=== PATIENT | female | born 1990 | race African-American/Black ===

== ENCOUNTER 2019-11-22 17:32 | Emergency (ER) | payer OTHER, SELFPAY ==
[2019-11-22 17:44] VITALS: BP 130/80; PULSE 70; RESP 16; TEMP 37.2; O2SAT 100
--- NOTE | 2019-11-22 17:52 | ED.GENADULT ---
HPI - General Adult General Chief complaint: Neck Pain/Injury Stated complaint: Abdominal pain and neck pain Time Seen by Provider: 11/22/19 17:52 Source: patient Mode of arrival: ambulatory Limitations: no limitations History of Present Illness HPI narrative: 29-year-old female patient presents to the [facility] with complaints of left side pain left-sided neck pain for the past month. Patient states she has seen her doctor for this and she was prescribed some meloxicam but she states she has not taken it yet. Patient states she is concerned about the side effects with the kidneys. Patient states that she has had a DVT in her leg before in the past and just had a follow-up in regards to her DVT about 2 weeks ago but is currently not on any blood thinners at this time. Patient is concerned also because she was recently diagnosed with lupus and has a follow-up appointment with this next week. Patient denies any chest pain, shortness of breath. Patient states she has had a lot of anxiety lately. Patient states she feels like something might be in her lung and she wanted to come and get checked out today. Related Data Allergies Allergy/AdvReac Type Severity Reaction Status Date / Time No Known Allergies Allergy Unknown Verified 11/22/19 17:37 Review of Systems Review of Systems: Narrative: CONSTITUTIONAL: Denies fever, chills, or sweats. EYES: Denies visual changes, redness, or discharge. ENT: Denies rhinorrhea, congestion, sore throat, or otalgia. CARDIOVASCULAR: Denies chest pain, palpitations, or edema. RESPIRATORY: Denies cough or dyspnea. Positive left rib pain GASTROINTESTINAL: Denies abdominal pain, nausea, vomiting, or diarrhea. GENITOURINARY: Denies dysuria or hematuria. SKIN: Denies rash or itching. MUSCULOSKELETAL: Denies back pain, joint pain, or myalgia. Positive left-sided neck pain NEUROLOGIC: Denies headache, numbness, or weakness. PSYCHIATRIC: Denies anxiety or depression. [facility] Social History Social History Gender identity (if verbalized by the patient): Female Comments At the time of my signature I agree with nursing past medical history, surgical, social, and family history. There is no relevant family history pertinent to the presenting complaint. Exam Narrative: Exam Narrative: GENERAL: Well-appearing, well-nourished, and in no acute distress. HEAD: Normocephalic, atraumatic. EYES: PERRLA and EOMI. ENT: Nares clear, no rhinorrhea or epistaxis. Mucous membranes moist. NECK: Supple, no lymphadenopathy. No surface trauma, no soft tissue or muscle tenderness or spasm noted. Trachea midline. No subq emphysema or crepitus. No janeth tenderness, step-offs or deformity to firm Palpation at posterior midline. FROM without limitation or pain, normal flexion, extension,Lateral bending, rotation, and axial load. CHEST: Clear to auscultation. No respiratory distress. Patient able talk in clear complete sentences. No tripoding noted. Patient does have point tenderness to the muscle area of the left side of the ribs. There is no obvious wound there. Slight muscle spasm noted on palpation. HEART: Regular rate and rhythm. No murmur heard. Normal peripheral pulses. ABDOMEN: Soft, nontender, nondistended, normal active bowel sounds. EXTREMITIES: Normal range of motion. No edema. SKIN: Warm, dry, no rash. NEURO: No focal deficits. Alert and oriented x3. Course Vital Signs Vital signs: Vital Signs Temperature 37.2 C 11/22/19 17:44 Pulse Rate 70 11/22/19 17:44 Respiratory Rate 16 11/22/19 17:44 Blood Pressure 130/80 11/22/19 17:44 Pulse Oximetry 100 11/22/19 17:44 Temperature 37.2 C 11/22/19 17:44 Pulse Rate 70 11/22/19 17:44 Respiratory Rate 16 11/22/19 17:44 Blood Pressure 130/80 11/22/19 17:44 Pulse Oximetry 100 11/22/19 17:44 Vital signs reviewed. The patient has been informed that they may have pre-hypertension or Hyper
== END 2019-11-22 18:09 | disposition home or self-care (01) ==
PROVIDERS: Emergency Provider Nurse Practitioner Family
DX: R07.89 Other chest pain (principal); M54.2 Cervicalgia; Z86.718 Personal history of other venous thrombosis and embolism
CPT/HCPCS: 99211; G0463

== ENCOUNTER 2019-12-10 19:17 | Emergency (ER) | payer OTHER, SELFPAY ==
[2019-12-10 19:27] VITALS: BP 152/97; PULSE 62; RESP 16; TEMP 36.3; O2SAT 100
--- NOTE | 2019-12-10 19:56 | ED.HA ---
HPI - Headache General Chief Complaint: Headache Stated Complaint: headache Time Seen by Provider: 12/10/19 19:34 History of Present Illness HPI Narrative: 29 y.o female presents to the ED with c/o sharp head pains since this A.M. with chills. Pt reports she went to work today and took a Tylenol 500mg and her current prednisone prescription with some relief. She reports light sensitivity, denies n/v. Denies cough, SOB, CP. Has had ongoing left rib pain just below breast that she is taking prednisone for-currently pain free. Pt reports possible recent abnormal SHELBY lab and told she may have Lupus. She also has ongoing concern about a reoccurence of a blood clot. She has had a lot of stress regarding her health and is concerned something is wrong. A/O x3. NAD. Related Data Home Medications Medication Instructions Recorded Confirmed ascorbic aous-wfkkfbtm-zwa 1,000 mg PO DAILY 12/10/19 [Emergen-C Immune Plus] lactobacillus combination no.8 3,000 mmu cells PO DAILY 12/10/19 [Adult Probiotic] multivitamin 1 tablet PO DAILY 12/10/19 prednisone 0 mg PO PER PKG DIR 12/10/19 Allergies Allergy/AdvReac Type Severity Reaction Status Date / Time No Known Allergies Allergy Unknown Verified 12/10/19 19:45 Review of Systems Review of Systems: Narrative: CONSTITUTIONAL: Denies fever or sweats. Reports chills with sharp head pains today. EYES: Denies visual changes, redness, or discharge. Denies tearing. Reports some light sensitivity. HEAD: Reports sharp pains in the back of the head that are intermittent. ENT: Denies rhinorrhea, congestion, sore throat, or otalgia. CARDIOVASCULAR: Denies chest pain, palpitations, or edema. RESPIRATORY: Denies cough or dyspnea. GASTROINTESTINAL: Denies abdominal pain, nausea, vomiting, or diarrhea. GENITOURINARY: Denies dysuria or hematuria. SKIN: Denies rash or itching. MUSCULOSKELETAL: Reports a tight feeling to the anterior aspect of the knee. Denies injury. Denies calf or posterior knee pain. NEUROLOGIC: Denies numbness, or weakness. Reports sharp pains that occur in the back of the head. PSYCHIATRIC: Denies anxiety or depression. [facility] Past Medical History Medical History (Updated 12/10/19 @ 21:12 by SKYE Quinteros) History of DVT (deep vein thrombosis) Family History Family History (Updated 12/10/19 @ 20:30 by SKYE Quinteros) Grandparent Brain tumor Social History Social History (Updated 12/10/19 @ 20:03 by SKYE Quinteros) Smoking status: Never smoker Alcohol intake: current Drinks per week: 2 Substance use: never Gender identity (if verbalized by the patient): Female Exam Narrative: Exam Narrative: GENERAL: Appears stressed, in no acute distress. HEAD: Normocephalic, atraumatic. EYES: PERRL 3mm bilat and EOMI. sclera anicteric. ENT: Nares clear, no rhinorrhea or epistaxis. No sinus tenderness. Mucous membranes moist. NECK: Supple. No cervical spine tenderness. No cervical lymphadenopathy. CHEST: Clear to auscultation. No respiratory distress. No rash, ecchymosis, palpable mass, crepitus to the left rib area just under the breast. HEART: Regular rate and rhythm. No murmur heard. Normal peripheral pulses. ABDOMEN: Soft, nontender, nondistended, normal active bowel sounds. EXTREMITIES: Normal range of motion. No edema. SKIN: Warm, dry, no rash. NEURO: No focal deficits. Alert and oriented x3. Cranial nerves II through XII intact. PSYCH: Maintains eye contact. Course Course Emergency Course: Pt reports good pain relief from Toradol. Vital Signs Vital signs: Vital Signs Temperature 36.3 C L 12/10/19 19: Pulse Rate 62 12/10/19 19:27 Respiratory Rate 16 12/10/19 19: Blood Pressure 152/97 H 12/10/19 19:27 Pulse Oximetry 100 12/10/19 19:27 Temperature 36.1 C L 12/10/19 21:20 Pulse Rate 65 12/10/19 21:20 Respiratory Rate 18 12/10/19 21:20 Blood Pressure 152/83 H 12/10/19 21:20 Pulse Oximet
[2019-12-10] MEDS: KETOROLAC (*BKC) 60 MG/2 ML VIAL IM (20:28)
[2019-12-10 21:20] VITALS: BP 152/83; PULSE 65; RESP 18; TEMP 36.1; O2SAT 100
== END 2019-12-10 21:22 | disposition home or self-care (01) ==
PROVIDERS: Emergency Provider Nurse Practitioner
DX: F41.9 Anxiety disorder, unspecified (principal); Z86.718 Personal history of other venous thrombosis and embolism
CPT/HCPCS: 96372; 99283; J1885

== ENCOUNTER 2020-08-21 18:06 | Emergency (ER) | payer OTHER, SELFPAY ==
[2020-08-21 18:16] VITALS: BP 144/95; PULSE 69; RESP 18; TEMP 37; O2SAT 100
--- NOTE | 2020-08-21 18:27 | ED.FEMALEGU ---
HPI - Female Genitourinary General Chief complaint: Urogenital-Female Stated complaint: abd pain Time Seen by Provider: 08/21/20 18:27 Source: patient and RN notes reviewed Mode of arrival: ambulatory Limitations: no limitations History of Present Illness HPI Narrative: 30 year old female ho presents to express care with complaints of lower abdominal suprapubic area discomfort for the past 3 days and also discomfort when she urinates. Patient denies any burning noted with urination just discomfort, states no urinary frequency or urgency noted but symptoms are similar to when she has had UTI's in the past. Patient denies any fevers,chills, or sweats, denies any nausea or vomiting or diarrhea, denies any CVA tenderness. Patient has not taken any OTC AZO for symptoms. MD elicited complaint: dysuria and pelvic pain Pertinent past history: other (previous UTI, trichomonas) Onset (ago): day(s) (3) Location of symptoms: suprapubic and urethra Severity: moderate Female Urogenital Radiation: Suprapubic Severity scale (1-10): 4 Quality of pain: aching Consistency: constant Vaginal discharge: none Vaginal bleeding: none Urinary symptoms: Dysuria Exacerbating factors: urination Relieving factors: none Associated symptoms: denies other symptoms Treatment prior to arrival: none Sexual activity: Yes Patient : No Date of Last Menstrual Period: 08/07/20 Related Data Allergies Allergy/AdvReac Type Severity Reaction Status Date / Time No Known Allergies Allergy Unknown Verified 08/21/20 18:30 Review of Systems Review of Systems: Narrative: CONSTITUTIONAL: Denies fever, chills, or sweats. EYES: Denies visual changes, redness, or discharge. ENT: Denies rhinorrhea, congestion, sore throat, or otalgia. CARDIOVASCULAR: Denies chest pain, palpitations, or edema. RESPIRATORY: Denies cough or dyspnea. GASTROINTESTINAL: states lower abdominal pressure,no nausea, vomiting, or diarrhea. GENITOURINARY: positive dysuria no hematuria. SKIN: Denies rash or itching. MUSCULOSKELETAL: Denies back pain, joint pain, or myalgia. NEUROLOGIC: Denies headache, numbness, or weakness. PSYCHIATRIC: Denies anxiety or depression. All systems reviewed & are unremarkable except as noted in HPI and below PMFSH Past Medical History Medical History (Updated 08/22/20 @ 10:16 by Rupa Hamilton NP) History of DVT (deep vein thrombosis) Lupus (systemic lupus erythematosus) Surgical History Surgical History (Updated 08/22/20 @ 10:16 by Rupa Hamilton NP) Hx of umbilical hernia repair with mesh Previous section Family History Family History Grandparent Brain tumor Social History Social History (Updated 12/10/19 @ 20:03 by SKYE Quinteros) Smoking status: Never smoker Alcohol intake: current Drinks per week: 2 Substance use: never Gender identity (if verbalized by the patient): Female Comments At time of signature, agree with nursing past medical, surgical, social and family history. There is no relevant family history pertinent to the presenting complaint Exam Narrative: Exam Narrative: GENERAL: Well-appearing, well-nourished, and in no acute distress. HEAD: Normocephalic, atraumatic. EYES: PERRLA and EOMI. ENT: Nares clear, no rhinorrhea or epistaxis. Mucous membranes moist. NECK: Supple.no lymphadenopathy CHEST: Clear to auscultation. No respiratory distress.SAO2 100% HEART: Regular rate and rhythm. No murmur heard. Normal peripheral pulses. ABDOMEN: Soft, nontender on palpation, nondistended, normal active bowel sounds.No CVA tenderness or McBurney point tenderness on examination. EXTREMITIES: Normal range of motion. No edema. SKIN: Warm, dry, no rash. NEURO: No focal deficits. Alert and oriented x3. Course Vital Signs Vital signs: Vital Signs Temperature 37.0 C 08/21/20 18:16 Pulse Rate 69 08/21/20 18:16 Respiratory Rate 18 08/21/20 18:16
== END 2020-08-21 18:47 | disposition home or self-care (01) ==
PROVIDERS: Emergency Provider Registered Nurse
DX: N39.0 Urinary tract infection, site not specified (principal); M32.9 Systemic lupus erythematosus, unspecified; Z86.718 Personal history of other venous thrombosis and embolism
CPT/HCPCS: 81003; 87086; 99213; G0463

== ENCOUNTER 2021-03-22 19:46 | Emergency (ER) | payer OTHER, SELFPAY ==
[2021-03-22 19:56] VITALS: BP 138/86; PULSE 70; RESP 16; TEMP 35.8; O2SAT 100
--- NOTE | 2021-03-22 20:11 | ED.ABDPAIN ---
HPI - Abdominal Pain General Chief Complaint: Abdominal Pain Stated Complaint: Abdominal Pain Time Seen by Provider: 03/22/21 20:03 Source: patient and RN notes reviewed Mode of arrival: ambulatory Limitations: no limitations History of Present Illness HPI narrative: Patient presents today complaining of sharp lower abdominal pain from the umbilicus that radiates down to the suprapubic area. Pain started this morning and has been constant throughout the day. Denies nausea, vomiting, fever, dysuria, hematuria, frequency or urgency. Reports headache as well as one loose stool this morning. Currently rates her pain 7/10. She has taken Excedrin for her headache today. MD elicited complaint: abdominal pain Related Data Home Medications Medication Instructions Recorded Confirmed zbyacwxioo-viayomogzcskw-laoy cap 03/22/21 cyclobenzaprine mg 03/22/21 prednisone 03/22/21 Allergies Allergy/AdvReac Type Severity Reaction Status Date / Time No Known Allergies Allergy Unknown Verified 03/22/21 19:59 Review of Systems Review of Systems: Narrative: CONSTITUTIONAL: Denies body aches, fever, chills, or sweats. EYES: Denies visual changes, redness, or discharge. ENT: Denies rhinorrhea, congestion, sore throat, or otalgia. CARDIOVASCULAR: Denies chest pain, palpitations, or edema. RESPIRATORY: Denies cough or dyspnea. GASTROINTESTINAL: Denies nausea, vomiting, or diarrhea. + Abdominal pain GENITOURINARY: Denies dysuria or hematuria. SKIN: Denies rash, itching, or wounds. MUSCULOSKELETAL: Denies back pain, joint pain, or myalgia. NEUROLOGIC: Denies numbness, tingling, or weakness. + Headache PSYCH: Denies depression or anxiety. [facility] Past Medical History Medical History History of DVT (deep vein thrombosis) Lupus (systemic lupus erythematosus) Surgical History Surgical History Hx of umbilical hernia repair with mesh Previous section Family History Family History Grandparent Brain tumor Social History Social History Smoking status: Never smoker Alcohol intake: current Drinks per week: 2 Substance use: never Gender identity (if verbalized by the patient): Female Comments At time of signature, I have reviewed and agree with nursing past medical, surgical, social and family history unless otherwise noted. Please see nursing chart for further information. There is no relevant family history pertinent to the presenting complaint Exam Narrative: Exam Narrative: GENERAL: Well-appearing, well-nourished, and in no acute distress. HEAD: Normocephalic, atraumatic. EYES: EOMI. No redness or drainage. Conjunctivae normal. ENT: Mucous membranes pink and moist. NECK: Normal AROM. CHEST: No respiratory distress. Clear to auscultation. HEART: Regular rate and rhythm. No murmur appreciated. Normal peripheral pulses. ABDOMEN: Soft, nondistended, normal active bowel sounds. Lower abdominal tenderness, most marked at the periumbilical area. No rebound or guarding. MUSCULOSKELETAL: No bony tenderness. EXTREMITIES: Normal range of motion. No edema. SKIN: Warm, dry, no rash. Capillary refill normal. Normal skin turgor. NEURO: No focal deficits. Alert and oriented x3. Gait steady. PSYCH: Normal affect. No signs of depression or anxiety. Course Vital Signs Vital signs: Vital Signs Temperature 96.4 F L 03/22/21 19:56 Pulse Rate 70 03/22/21 19:56 Respiratory Rate 16 03/22/21 19:56 Blood Pressure 138/86 03/22/21 19:56 Pulse Oximetry 100 03/22/21 19:56 Temperature 96.4 F L 03/22/21 19:56 Pulse Rate 70 03/22/21 19:56 Respiratory Rate 16 03/22/21 19:56 Blood Pressure 138/86 03/22/21 19:56 Pulse Oximetry 100 03/22/21 19:56 Revie
== END 2021-03-22 20:16 | disposition short-term general hospital (02) ==
PROVIDERS: Emergency Provider Nurse Practitioner
DX: R10.33 Periumbilical pain (principal); Z86.718 Personal history of other venous thrombosis and embolism; M32.9 Systemic lupus erythematosus, unspecified
CPT/HCPCS: 81003; 99212; G0463

== ENCOUNTER 2021-03-22 20:33 | Emergency (ER) | payer OTHER, SELFPAY ==
--- NOTE | ~2021-03-22 | CT_ITS ---
EXAMINATION: CT abdomen pelvis w con EXAM DATE: 03/22/2021 23:26 INDICATION: Periumbilical abdominal pain. TECHNIQUE: Spiral CT of the abdomen and pelvis was performed following intravenous injection of 100 m L Omnipaque 350. Axial, coronal and sagittal images of the abdomen and pelvis were reviewed. The do se-length product (DLP) for this examination was 1251.50 mGy-cm. The exposure was tailored according to patient size (auto mA exposure control), and iterative reconstruction (ASIR) was used as addition al dose reduction technique. There is no prior study for comparison. FINDINGS: The liver, spleen, adrenal glands and pancreas are unremarkable. The gallbladder is contra cted but otherwise unremarkable. Portal and splenic veins are patent. Kidneys enhance symmetrically . There is no hydronephrosis. 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 The blad lucia is unremarkable. There is no retroperitoneal or pelvic lymphadenopathy. There is small umbilical fat-containing hernia.. There are no findings to suggest appendicitis. The stomach and small bowel are unremarkable. There is expected amount of colonic stool. No free intraperitoneal gas. The heart is normal in size. T here are no pericardial or pleural effusions. The lung bases are unremarkable. The bones are unrema rkable. IMPRESSION: 1. No acute intra-abdominal findings. 2. 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 3. Small umbilical fat-containing hernia. Reviewed, dictated and finalized at location A.
[2021-03-22 21:16] VITALS: BP 133/86; PULSE 62; RESP 18; TEMP 36.6; O2SAT 100
[2021-03-22 21:41] LABS: Basophils Percent Auto 0.5 % (0.2-1.2); Hematocrit 37.8 % (37.0-47.0); Hemoglobin 12.4 g/dL (12.0-15.0); Lymphocytes Absolute Auto 2.14 K/mm3 (0.9-3.2); Lymphocytes Percent Auto 54.6 % (18.3-44.2); Mean Corpuscular HGB Conc 32.8 g/dl (32-36); Mean Corpuscular Hemoglobin 26.4 pg (26-34); Mean Corpuscular Volume 80.4 fl (80-100); Mean Platelet Volume 9.7 fl (7.4-10.4); Monocytes Absolute Auto 0.3 K/mm3 (0.1-0.6); Monocytes Percent Auto 8.7 % (2.6-8.5); Neutrophils Absolute Auto 1.4 K/mm3 (1.3-6.7); Neutrophils Percent Auto 36.2 % (45.5-73.1); Platelet Count Result 255 k/mm3 (150-375); Red Cell Distribution Width 12.7 % (11.5-14.5); White Blood Count 3.9 K/mm3 (4.5-10.0)
[2021-03-22 21:48] LABS: Alanine Aminotransferase 14 U/L (4-35); Albumin Level 4.3 g/dL (3.5-5.1); Alkaline Phosphatase 58 U/L (38-126); Anion Gap 8 mmol/L (8-16); Aspartate Amino Transferase 22 U/L (14-36); Bilirubin,Total 0.2 mg/dL (0.2-1.3); Blood Urea Nitrogen 10 mg/dL (7-17); Carbon Dioxide 28 mmol/L (22-30); Chloride 104 mmol/L (98-107); Estimated CRCL calculation 80 ml/min; Estimated Glomerular Filt Rate > 60; Glucose 91 mg/dL (65-105); Lipase 55 U/L (23-300); Potassium 3.6 mmol/L (3.4-5.0); Sodium 140 mmol/L (137-145)
--- NOTE | 2021-03-22 21:49 | PC.NURSE ---
Pt presents to ED with complaints of abdominal pain that onset this morning. Pain rated 6/10 and sharp and umbilicus and lower abdomen. Pt denies nvd, fever, chills and chest pain. Pt states she took excedrin at approx 11am today with no relief. Pt denies urinary symptoms. Pt admits to hx of anxiety. States discomfort increased with exhaling. Pt noted to be alert and oriented x4 and in no obvious distress with stable vitals. Call button and personal items within reach. Pt advised to press call button for assistance.
--- NOTE | 2021-03-22 21:53 | PC.NURSE ---
Pt states she provided urine specimen at and states she was sent here for evaluation because they couldn't do anything for her.
[2021-03-22 21:54] VITALS: BP 132/84; PULSE 69; RESP 17; TEMP 36.4; O2SAT 100
--- NOTE | 2021-03-22 21:55 | PC.NURSE ---
Pt aware of need for urine specimen and states she urinated at [facility] and does not have the urge to urinate at this time. Specimen cup provided.
--- NOTE | 2021-03-22 22:27 | PC.NURSE ---
pt ambulated in [place] to restroom to provide urine specimen.
--- NOTE | 2021-03-22 22:53 | ED.ABDPAIN ---
HPI - Abdominal Pain General Chief Complaint: Abdominal Pain Stated Complaint: abdominal pain, migraine Time Seen by Provider: 03/22/21 22:00 Source: patient Mode of arrival: ambulatory Limitations: no limitations History of Present Illness HPI narrative: Patient is a 31-year-old female complaining periumbilical and lower abdominal pain, 6 out of 10, dull, nonradiating started this morning. Patient denies any pain, shortness of breath, nausea, vomiting, diarrhea, fever, chills or urinary symptoms. Related Data Home Medications Medication Instructions Recorded Confirmed pattklyclk-qkcjcctvfilah-ycoq cap 03/22/21 cyclobenzaprine mg 03/22/21 prednisone 03/22/21 Allergies Allergy/AdvReac Type Severity Reaction Status Date / Time No Known Allergies Allergy Unknown Verified 03/22/21 21:20 Review of Systems Review of Systems: All systems reviewed & are unremarkable except as noted in HPI and below Constitutional: Constitutional: Denies body ache(s), Denies chills, Denies excessive sweating, Denies fatigue, Denies fever(s), Denies headache(s), Denies lethargy, Denies malaise, Denies weakness and Denies weight loss Eyes: Eyes: Denies blurry vision, Denies change in vision and Denies loss of vision ENT: Denies dizziness, Denies ear discharge, Denies headache(s), Denies lip swelling, Denies epistaxis, Denies nasal congestion, Denies neck pain, Denies throat swelling and Denies tongue swelling Cardiovascular: Cardiovascular: Denies chest pain, Denies chest pain at rest, Denies chest pain with activity, Denies diaphoresis, Denies rapid heart rate, Denies edema, Denies irregular heart rhythm, Denies lightheadedness, Denies palpitations, Denies dyspnea and Denies dyspnea on exertion Respiratory: Respiratory: Denies chest congestion, Denies cough, Denies hemoptysis, Denies dyspnea and Denies dyspnea on exertion Gastrointestinal: Gastrointestinal: Denies melena, Denies hematochezia, Denies diarrhea, Denies nausea, Denies vomiting and Denies hematemesis Musculoskeletal: Musculoskeletal: Denies abnormal gait, Denies deformity, Denies joint swelling, Denies limited range of motion, Denies neck pain and Denies numbness Neurologic: Denies Abnormal speech present, Denies abnormal gait, Denies confusion, Denies dizziness, Denies headache(s), Denies focal weakness, Denies loss of vision, Denies numbness, Denies Other visual disturbances, Denies Sensory deficit (Neuro) and Denies weakness Psychiatric: Psychiatric: Denies confusion, Denies depression, Denies auditory hallucinations, Denies homicidal ideation and Denies suicidal ideation Endocrine: Endocrine: Denies cold intolerance, Denies excessive sweating, Denies fatigue, Denies heat intolerance and Denies palpitations Hematologic/Lymphatic: Hematologic/Lymphatic: Denies easy bleeding and Denies easy bruising Allergic/Immunologic: Allergic/Immunologic: Denies lip swelling, Denies throat swelling and Denies tongue swelling PMFSH Past Medical History Medical History History of DVT (deep vein thrombosis) Lupus (systemic lupus erythematosus) Surgical History Surgical History Hx of umbilical hernia repair with mesh Previous section Family History Family History Grandparent Brain tumor Social History Social History Smoking status: Never smoker Alcohol intake: current Drinks per week: 2 Substance use: never Gender identity (if verbalized by the patient): Female Exam Const: General: cooperative, healthy appearing, comfortable, no acute distress, well developed, alert and awake; No confusion Orientation/consciousness: oriented to person, oriented to place, oriented to time, patient oriented x3 and No confusion Limitations: no limitations H
[2021-03-22 23:21] LABS: Add Urine Microscopic? YES; Appearance Urine Clear (Clear); Bilirubin Urine Negative (Negative); Blood Urine Negative (Negative); Color Urine Yellow (Yellow); Glucose Urine UA Negative (Negative); Ketones Urine Negative (Negative); Leukocyte Esterase Ur Negative LEU/UL (Negative); Mucus Urine Rare /lpf; Nitrate Urine Negative (Negative); Protein Urine 1+ mg/dL (Negative); RBC Urine 0-2 /hpf (0-2); Specific Grav Ur 1.029 (1.001-1.035); Squamous Epithelial Cell Urine Many /hpf (Few); WBC Urine 0-3 /hpf
[2021-03-23] MEDS: KETOROLAC 30 MG/ML VIAL (*BKC) IV PUSH (00:14)
[2021-03-23 00:15] VITALS: BP 145/80; PULSE 64; RESP 16; TEMP 36.9; O2SAT 100
--- NOTE | 2021-03-23 00:20 | PC.NURSE ---
EDMD at bedside to update pt on poc and all questions and concerns addressed. Pt resting on cart in its lowest position and remains alert and oriented x4 and in no obvious distress. Vitals are stable and pt has no complaints or concerns at this time. Pt adds that she was recently in [place] and returned today. States that both she and a cousin who went with her to [place] has been sick since their arrival and she decided to come home early. EDMD aware.
[2021-03-23] MEDS: SODIUM CHLORIDE 0.9% IV 1,000 ML 999 ML IV CONT (00:32)
[2021-03-23 01:03] VITALS: BP 132/79; PULSE 66; RESP 17; O2SAT 100
== END 2021-03-23 01:03 | disposition home or self-care (01) ==
PROVIDERS: Emergency Medicine; Emergency Provider Emergency Medicine
DX: R10.33 Periumbilical pain (principal); Z86.718 Personal history of other venous thrombosis and embolism
CPT/HCPCS: 36415; 74177; 80053; 81001; 81003; 81025; 83690; 85025; 96361; 96374; 99284; J1885; J7030; Q9967

== ENCOUNTER 2021-11-22 19:31 | Emergency (ER) | payer BC, OTHER, SELFPAY ==
--- NOTE | ~2021-11-22 | XR_ITS ---
XR chest 2V DATE: 11/22/2021 20:05 INDICATION: Left chest pain radiating to left breast. Shortness of breath for one day. TECHNIQUE: PA and lateral views COMPARISON: 02/02/2019 CTA chest FINDINGS: Normal heart size. No hilar or mediastinal enlargement. No pulmonary infiltrate or consolid ation, pleural effusion or pulmonary vascular congestion or pneumothorax. IMPRESSION: Negative Reviewed, dictated and finalized at location A. UCT SAFETY HEAD IMPRESSION: Negative
--- NOTE | ~2021-11-22 | CT_ITS ---
EXAMINATION: CTA chest PE protocol DATE: 11/22/2021 22:19 INDICATION: Shortness of breath. Elevated d-dimer. TECHNIQUE: Computed tomography angiography (CTA) of the chest was performed with 100 mL Omnipaque-350 intravenous contrast timed to evaluate the pulmonary arteries. Coronal maximum intensity projection 3D-reconstructions were created by the technologist. Automated exposure control and iterative reconst ruction technique were employed. Exam dose: 476.88 mGy-cm total exam DLP. COMPARISON: November 22, 2021 2 view chest FINDINGS: There is diagnostic contrast enhancement of the pulmonary arteries and no evidence of pulmo nary embolism. Thyroid goiter is noted. No thoracic aortic aneurysm or dissection. No hilar or mediastinal mass lesion or lymphadenopathy. No pulmonary infiltrate or consolidation or pulmonary mass lesion. Normal morphology of the adrenal glands. Included upper abdominal structures are unremarkable. Included skeletal structures are unremarkable. IMPRESSION: No evidence of pulmonary embolism Thyroid goiter Reviewed, dictated and finalized at [facility]. Reviewed, dictated and finalized at location A. [employer]
[2021-11-22 19:43] VITALS: BP 132/82; PULSE 59; RESP 16; TEMP 36.6; O2SAT 97
--- NOTE | 2021-11-22 19:46 | ECG_ITS ---
Measurements Intervals Felt Rate: 62 P: 32 CT: 137 QRS: 37 QRSD: 104 T: 31 QT: 411 QTc: 419 Interpretive Statements SINUS RHYTHM INCOMPLETE RIGHT BUNDLE BRANCH BLOCK [90+ ms QRS DURATION, TERMINAL R IN V1/V2, 40+ ms S IN I/aVL/V4/V5/V6] COMPARED TO ECG 03/05/2019 11:13:26 NO SIGNIFICANT CHANGES Electronically Signed On 11-23-2021 15:51:53 [employer]OCIATE PROFESSOR OF HISTORY by Shyam Piper M.D.
[2021-11-22 20:33] LABS: Basophils Percent Auto 0.2 % (0.2-1.2); Hematocrit 37.6 % (37.0-47.0); Hemoglobin 12.2 g/dL (12.0-15.0); Lymphocytes Absolute Auto 2.51 K/mm3 (0.9-3.2); Lymphocytes Percent Auto 52.5 % (18.3-44.2); Mean Corpuscular HGB Conc 32.4 g/dl (32-36); Mean Corpuscular Hemoglobin 26.8 pg (26-34); Mean Corpuscular Volume 82.6 fl (80-100); Mean Platelet Volume 10.1 fl (7.4-10.4); Monocytes Absolute Auto 0.4 K/mm3 (0.1-0.6); Monocytes Percent Auto 7.5 % (2.6-8.5); Neutrophils Absolute Auto 1.9 K/mm3 (1.3-6.7); Neutrophils Percent Auto 39.8 % (45.5-73.1); Platelet Count Result 226 k/mm3 (150-375); Red Blood Count 4.55 M/mm3 (4.2-5.4); Red Cell Distribution Width 13.2 % (11.5-14.5); White Blood Count 4.8 K/mm3 (4.5-10.0)
[2021-11-22 20:43] LABS: Alanine Aminotransferase 19 U/L (4-35); Albumin Level 4.3 g/dL (3.5-5.1); Alkaline Phosphatase 63 U/L (38-126); Anion Gap 8 mmol/L (8-16); Aspartate Amino Transferase 25 U/L (14-36); Bilirubin,Total 0.3 mg/dL (0.2-1.3); Blood Urea Nitrogen 16 mg/dL (7-17); Calcium 8.8 mg/dL (8.4-10.2); Carbon Dioxide 24 mmol/L (22-30); Chloride 104 mmol/L (98-107); Estimated CRCL calculation 100 ml/min; Estimated Glomerular Filt Rate > 60; Glucose 97 mg/dL (65-110); Lipase 64 U/L (23-300); Potassium 3.6 mmol/L (3.4-5.0); Sodium 136 mmol/L (137-145)
[2021-11-22 20:44] LABS: Prothrombin Time 12.9 Seconds (11.1-14.7)
[2021-11-22 20:45] LABS: Partial Thromboplastin Time 31.3 SECONDS (22.3-36.8)
[2021-11-22 20:54] LABS: Troponin I < 0.012 ng/mL (0.000-0.034)
[2021-11-22] MEDS: ACETAMINOPHEN 500 MG TABLET 1000 MG PO (21:37)
[2021-11-22 21:51] LABS: D Dimer 1.48 ug/mL (<0.48)
[2021-11-22 21:55] LABS: Add Urine Microscopic? NO; Appearance Urine Clear (Clear); Bilirubin Urine Negative (Negative); Blood Urine Negative (Negative); Color Urine Yellow (Yellow); Glucose Urine UA Negative (Negative); Ketones Urine Negative (Negative); Leukocyte Esterase Ur Negative LEU/UL (Negative); Nitrate Urine Negative (Negative); Protein Urine Negative (Negative); Urobilinogen Urine Negative mg/dL (<2.0)
--- NOTE | 2021-11-22 22:51 | ED.CHESTPAIN ---
HPI - Chest Pain General Chief Complaint: Chest Pain <Shannon Anna APRN - Last Filed: 11/23/21 01:56> Stated Complaint: sob, bodyaches <Shannon Anna APRN - Last Filed: 11/23/21 01:56> Time Seen by Provider: 11/22/21 20:48 <Shannon Anna APRN - Last Filed: 11/23/21 01:56> Source: patient <Shannon Anna APRN - Last Filed: 11/23/21 01:56> Mode of arrival: ambulatory <Shannon Anna APRN - Last Filed: 11/23/21 01:56> Limitations: no limitations <Shannon Anna APRN - Last Filed: 11/23/21 01:56> History of Present Illness HPI narrative: 31-year-old female with history of DVT to right lower extremity about 3 years ago presents today with complaints of right lower extremity edema, shortness of breath, and chest pain. Patient states yesterday the chest pain was intermittent. Patient states today chest pain has been constant. Patient does have a history of a blood clot to the right lower extremity. 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 Patient denies any aggravating factors of chest pain. Patient does have a history of anxiety but currently not on any medications. Patient states she was hydroxyzine but last dose taken was about 8 months ago. Patient does endorse increased stressors at home. <Shannon Anna APRN - Last Filed: 11/23/21 01:56> Related Data Home Medications: Home Medications Medication Instructions Recorded Confirmed [id number] cap 03/22/21 cyclobenzaprine mg 03/22/21 prednisone 03/22/21 <Shannon Anna APRN - Last Filed: 11/23/21 01:56> Allergies/Adverse Reactions: Allergies Allergy/AdvReac Type Severity Reaction Status Date / Time No Known Allergies Allergy Unknown Verified 03/22/21 21:20 <Shannon Anna APRN - Last Filed: 11/23/21 01:56> Review of Systems Review of Systems: CONSTITUTIONAL: Denies fever, chills, or sweats. EYES: Denies visual changes, redness, or discharge. ENT: Denies rhinorrhea, congestion, sore throat, or otalgia. CARDIOVASCULAR: Positive for intermittent chest pain. Denies palpitations, or edema. RESPIRATORY: Positive for dyspnea. Denies cough. GASTROINTESTINAL: Denies abdominal pain, nausea, vomiting, or diarrhea. GENITOURINARY: Denies dysuria or hematuria. Positive for increased frequency of urination. SKIN: Denies rash or itching. MUSCULOSKELETAL: Denies back pain, joint pain, or myalgia. NEUROLOGIC: Denies headache, numbness, dizziness, or weakness. PSYCHIATRIC: Denies anxiety or depression. <Shannon Anna APRN - Last Filed: 11/23/21 01:56> [facility] Past Medical History Medical History: Medical History (Updated 11/23/21 @ 00:00 by [facility] [place]) History of DVT (deep vein thrombosis) <Shannon Anna APRN - Last Filed: 11/23/21 01:56> Surgical History Surgical History: Surgical History Hx of umbilical hernia repair with mesh Previous section <Shannon Anna APRN - Last Filed: 11/23/21 01:56> Family History Family History: Family History Grandparent Brain tumor <Shannon Anna APRN - Last Filed: 11/23/21 01:56> Social History Social History: Social History Smoking status: Never smoker Alcohol intake: current Drinks per week: 2 Substance use: never Gender identity (if verbalized by the patient): Female <Shannon Anna APRN - Last Filed: 11/23/21 01:56> Exam Narrative: CONSTITUTIONAL: Denies fever, chills, or sweats. EYES: Denies visual changes, redness, or discharge. ENT: Denies rhinorrhea, congestion, sore throat, or otalgia. CAR
[2021-11-22 23:00] VITALS: BP 126/72; PULSE 64; RESP 16; O2SAT 100
== END 2021-11-22 23:04 | disposition home or self-care (01) ==
PROVIDERS: Emergency Medicine; Emergency Provider Nurse Practitioner Family
DX: R07.89 Other chest pain (principal); Z86.718 Personal history of other venous thrombosis and embolism; E04.9 Nontoxic goiter, unspecified; R07.9 Chest pain, unspecified; I45.10 Unspecified right bundle-branch block
CPT/HCPCS: 36415; 71046; 71275; 80053; 81003; 81025; 83690; 84484; 85025; 85380; 85610; 85730; 93005; 99284; A9270; Q9967

== ENCOUNTER 2023-05-05 01:13 | Day surgery (SDC) | payer BC, MEDICAID, SELFPAY ==
[2023-03-30 09:24] VITALS: BMI 38.9
--- NOTE | 2023-03-30 09:29 | PC.NURSE ---
Addendum entered by Roshni Casiano RN 04/26/23 15:26: PT TO ARRIVE AT 0730 ON 05/05/23 FOR SURGERY AT 0930. LAST DOSE OF VITAMINS 05/01/23. Original Note: Report to the Outpatient Waiting Room, entrance under the green pavilion located off [facility], at time 0600 on date 04/07/23. Planned Procedure Time: 0730. Time changes happen often and if your time is changed the preop area will call you the afternoon before. - You and your visitor will be asked to self-screen and do not enter if you have any COVID symptoms. - A mask is optional within the hospital at this time. Patients may have clear liquids (water, carbonated beverages, clear teas, apple juice) until 3 hours prior to surgery with a maximum of 20 ounces. - No food from midnight until time of surgery Take the following medications with a SIP of water the morning of surgery: NONE DO NOT STOP ANY OF YOUR OTHER PRESCRIPTION MEDICATIONS PRIOR TO SURGERY ?EXCEPT THE FOLLOWING Medications to discontinue per physician: VITAMINS/SUPPLEMENTS Date to take last dose: 04/03/23 Please no make-up, nail nepali, hairspray, perfume, deodorant, or body powder the day of surgery. No jewelry (including any body piercings) or valuables the day of surgery, leave them at home. Please take a shower or bath the night before, or the morning of, surgery with an antibacterial soap. Wear comfortable, loose fitting clothing. - Jewelry must be removed prior to entering the operating room. Rings and piercings that are not removed may be cut off. - The hospital will not accept responsibility for valuables. - Please leave all valuables, including medications, at home the day of surgery. If you are going home after surgery, a licensed hearse driver must drive you home. - NO public transportation without another adult if you receive anesthesia. - We recommend that an adult stay with you for 24 hours following discharge. - We also recommend that you do not drive, make important decision, drink alcoholic beverages, or take any drugs that were not prescribed by your health care provider for at least 24 hours after your discharge time. Follow any additional instructions given to you from your surgeon. If you or anyone in your household have experienced Covid symptoms in the past week, please notify your surgeon or the nurse liaison at the phone number below for possible testing. Telephone instructions given to JANELLE GOOD and asked if any additional questions and then verbalized understanding. Patient advised to call surgeon office or pre surgery nurse liaison [phone] if any additional questions.
--- NOTE | 2023-04-26 15:27 | PC.NURSE ---
Pt states no changes in medications or health history since initial interview. New pre-op instructions reviewed with pt. Pt denies further questions at this time.
--- NOTE | 2023-05-02 12:11 | P.HP_ITS ---
H&P: HPI History of Present Illness Date/Time: 05/02/23 12:11 Chief Complaint: Discomfort in the labial region Narrative: This is a 33-year-old female admitted for labioplasty secondary to enlarged irregular labia. She finds these had uncomfortable wearing tighter clothing and discomfort having sex of risks and benefits reviewed in great detail. She does realize this could result in pelvic pain or painful sex and is agreeable to that risk. [facility] Past Medical History Medical History History of DVT (deep vein thrombosis) Surgical History Surgical History Hx of umbilical hernia repair with mesh Previous section Family History Family History Grandparent Brain tumor Social History Social History Smoking status: Current some day smoker Tobacco type: cigarettes Additional smoking assessment comments: ONCE EVERY 5 MONTHS OR SO Alcohol intake: current Drinks per week: 2 Substance use: never Substance use type: does not use Living arrangements: with family Additional living arrangements comments: DAUGHTER Gender identity (if verbalized by the patient): Female Spiritual care concerns: No Meds Home Medications and Allergies Home Medications Medication Instructions Recorded Confirmed Type Saccharomyces boulardii 250 mg 250 mg PO BID 12/07/22 04/26/23 History capsule (Daily Probiotic (S. boulardii)) biotin 10,000 mcg chewable tablet 10,000 mcg PO DAILY 12/07/22 04/26/23 History (Hair, Skin and Nails (biotin)) cholecalciferol (vitamin D3) 10 10 mcg PO DAILY 12/07/22 04/26/23 History mcg (400 unit) capsule omega-3 417 mg-dha 120 mg-epa-276 1 cap PO DAILY 12/07/22 04/26/23 History mg-fish oil 600 mg-tumeric capsule Allergies Allergy/AdvReac Type Severity Reaction Status Date / Time No Known Allergies Allergy Unknown Verified 04/26/23 15:27 Exam Const: General: cooperative, healthy appearing and comfortable Nutritional Appearance: average body habitus Orientation/consciousness: oriented to person, oriented to place and oriented to time HENMT: Head: normal to inspection Resp: Effort & Inspection: normal respiratory effort Cardio: Rate: regular rate Rhythm: regular rhythm Heart sounds: S1 normal heart sound present and S2 normal heart sound present GI: Inspection: normal to inspection : External Female Exam: normal external appearance (Bilaterally the labia majora on are markedly enlarged) Speculum Exam - Vagina: normal appearance of the vagina Speculum Exam - Cervix: normal appearance of the cervix Bimanual exam- vagina & uterus: uterine size normal Bimanual Exam- Adnexa, other: normal adnexae Assessment and Plan Assessment and plan (1) Labia enlarged: Code(s): N90.60 - Unspecified hypertrophy of vulva Status: Acute Plan Bilateral labial plasty
--- NOTE | 2023-05-05 06:19 | WPDHPUPDATE1 ---
History and Physical Update Update Date/Time: 05/05/23 06:19 History and Physical has been reviewed, including an updated exam of the patient. There are NO changes in the patient's condition. Risks, benefits, and alternatives have been discussed and questions answered. Patient agrees to proceed with procedure.
[2023-05-05] MEDS: LACTATED RINGERS 1,000 ML 30 ML IV CONT ×3 (06:30→10:00)
[2023-05-05 08:35] VITALS: BP 129/80; PULSE 60; RESP 14; TEMP 36; O2SAT 100
--- NOTE | 2023-05-05 08:42 | P.PNAN_ITS ---
Anes - Initial Pre Proc Eval Procedure: Operation Date: 05/05/23 09:30 Proposed Procedures p Labiaplasty - Jeffery Langston MD Date/Time: 05/05/23 08:42 Surgeon: Jeffery Langston MD Pre Op Diagnosis: Enlarged Labia, dysperennia Patient Data Age: 33 Gender: F Height: 1.6 m Weight: 99.8 kg Allergies Allergy/AdvReac Type Severity Reaction Status Date / Time No Known Allergies Allergy Unknown Verified 04/26/23 15:27 Home Medications Medication Instructions Recorded Confirmed Type Saccharomyces boulardii 250 mg 250 mg PO BID 12/07/22 04/26/23 History capsule (Daily Probiotic (S. boulardii)) biotin 10,000 mcg chewable tablet 10,000 mcg PO DAILY 12/07/22 04/26/23 History (Hair, Skin and Nails (biotin)) cholecalciferol (vitamin D3) 10 10 mcg PO DAILY 12/07/22 04/26/23 History mcg (400 unit) capsule omega-3 417 mg-dha 120 mg-epa-276 1 cap PO DAILY 12/07/22 04/26/23 History mg-fish oil 600 mg-tumeric capsule hydrocodone 5 mg-acetaminophen 325 1 tablet PO Q4H PRN pain #20 tabs 05/05/23 Rx mg tablet Patient hx anesthesia problems: none Family hx anesthesia problems: none Results Review: All pre-operative results and documents have been reviewed as part of the pre- operative evaluation. [facility] Past Medical History Medical History History of DVT (deep vein thrombosis) Surgical History Surgical History Hx of umbilical hernia repair with mesh Previous section Family History Family History Grandparent Brain tumor Social History Social History Smoking status: Current some day smoker Tobacco type: cigarettes Additional smoking assessment comments: ONCE EVERY 5 MONTHS OR SO Alcohol intake: current Drinks per week: 2 Substance use: never Substance use type: does not use Living arrangements: with family Additional living arrangements comments: DAUGHTER Gender identity (if verbalized by the patient): Female Spiritual care concerns: No Anes - Eval Final PreProcedure Day of Procedure 05/05/23 08:42 Patient weight: obese Heart: regular rate and rhythm Lungs: clear to auscultation Airway: Mallampati scale class II Neurological: alert and oriented Last oral intake: >/= 8 hours ASA classification: II Emergent: no Anesthetic plan: proceed Anesthesia type and monitoring: general GIVS and standard monitoring Results Review: All pre-operative results and documents have been reviewed as part of the pre- operative evaluation. Informed Consent: The patient's anesthetic plan and its attendant risks and benefits were discussed with the patient/family/POA. Questions were solicited and answers provided to the satisfaction of the patient/family/POA.
[2023-05-05] MEDS: LIDO 1%/EPINEPHRINE 1:100,000 50 ML VIAL INFILTRATE (09:57)
--- NOTE | 2023-05-05 09:59 | W.PM.PROC2 ---
Procedure Note - Detailed Date of Procedure 05/05/23 Pre-op Diagnosis Enlarged Labia, dysperennia Post-op Diagnosis Same Procedure Performed Bilateral labioplasty Surgeon Jeffery Langston MD Anesthesia General Indications this is a 33-year-old female with markedly enlarged labia majora with difficulty with intercourse and daily clothing Findings markedly enlarged labia majora bilaterally. Description of Procedure Patient was prepped draped in normal sterile fashion placed in the dorsal lithotomy position. Under excellent general anesthesia 10cc of 1% xylocaine anesthesia was placed along the marked lines to reduce the labia. Linear incisions were made and each labia removed. These were then closed with running 3020 Monocryl. Blood loss was estimated 25cc the wound itself were closed with a Monocryl and covered with Premarin cream there were no immediate complications Estimated Blood Loss 25 Drains No Packing No Pathology Yes Complications No immediate complications Condition Stable Disposition PACU
[2023-05-05 10:05] VITALS: BP 110/60; PULSE 80; RESP 16; TEMP 36.2; O2SAT 100
[2023-05-05 10:20] VITALS: BP 119/83; PULSE 53; RESP 11; O2SAT 100
[2023-05-05 10:45] VITALS: BP 124/88; PULSE 57; RESP 16
[2023-05-05] MEDS: oxyCODONE HCL (*CRX) 5 MG TAB IR PO (11:08)
[2023-05-05 11:15] VITALS: BP 126/75; PULSE 47; RESP 16
[2023-05-05 11:28] VITALS: BP 128/84; PULSE 53; RESP 16
== END 2023-05-05 11:45 | disposition home or self-care (01) ==
PROVIDERS: Visit Provider Obstetrics & Gynecology
PROC: (CPT 56620; principal; 2023-05-05 09:30)
DX: N90.60 Unspecified hypertrophy of vulva (principal); N94.10 Unspecified dyspareunia; Z72.0 Tobacco use; E66.9 Obesity, unspecified; Z68.41 Body mass index [BMI] 40.0-44.9, adult
CPT/HCPCS: 56620; A9270; J1100; J2250; J2405; J2704; J3010; J7120

== ENCOUNTER 2023-10-20 00:20 | Day surgery (SDC) | payer BC, MEDICAID, SELFPAY ==
[2023-10-11 14:08] VITALS: BMI 39.8
--- NOTE | 2023-10-11 14:21 | PC.NURSE ---
Report to the Outpatient Waiting Room, entrance under the green pavilion located off [facility], at time _0730_ on date _10/20/23_. Planned Procedure Time: _09 . Time changes happen often and if your time is changed the preop area will call you the afternoon before. - You and your visitor will be asked to self-screen and do not enter if you have any COVID symptoms. - A mask is optional within the hospital at this time. Patients may have clear liquids (water, carbonated beverages, clear teas, apple juice) until 3 hours prior to surgery with a maximum of 20 ounces. - No food from midnight until time of surgery Take the following medications with a SIP of water the morning of surgery: __NONE DO NOT STOP ANY OF YOUR OTHER PRESCRIPTION MEDICATIONS PRIOR TO SURGERY ?EXCEPT THE FOLLOWING Medications to discontinue per physician ALL SUPPLEMENTS AND PROBIOTICS Date to take last dose___10/17/23 Please no make-up, nail hebrew, hairspray, perfume, deodorant, or body powder the day of surgery. No jewelry (including any body piercings) or valuables the day of surgery, leave them at home. Please take a shower or bath the night before, or the morning of, surgery with an antibacterial soap. Wear comfortable, loose fitting clothing. - Jewelry must be removed prior to entering the operating room. Rings and piercings that are not removed may be cut off. - The hospital will not accept responsibility for valuables. - Please leave all valuables, including medications, at home the day of surgery. If you are going home after surgery, a licensed courtesy car driver must drive you home. - NO public transportation without another adult if you receive anesthesia. - We recommend that an adult stay with you for 24 hours following discharge. - We also recommend that you do not drive, make important decision, drink alcoholic beverages, or take any drugs that were not prescribed by your health care provider for at least 24 hours after your discharge time. Follow any additional instructions given to you from your surgeon. If you or anyone in your household have experienced Covid symptoms in the past week, please notify your surgeon or the nurse liaison at the phone number below for possible testing. Telephone instructions given to _CLARA and asked if any additional questions and then verbalized understanding. Patient advised to call surgeon office or pre surgery nurse liaison [phone] if any additional questions.
--- NOTE | 2023-10-17 13:03 | PM.IMHP ---
H&P: HPI History of Present Illness Date/Time: 10/17/23 13:03 Chief Complaint: Irregularity shape and right labia and discomfort Narrative: Patient is 33-year-old female admitted for resection of portion of labia. She has excessive pieces following successful of majority of her labia majora which were lowered and irregular. This still is somewhat enlarged and will be removed a she has had discomfort in area. Risks and benefits reviewed in full. It was again explained to her that this was not a cosmetic procedure she had all questions answered and asked to proceed PMFSH Past Medical History Medical History History of DVT (deep vein thrombosis) Surgical History Surgical History Hx of umbilical hernia repair with mesh Previous section Family History Family History Grandparent Brain tumor Social History Social History Smoking status: Never smoker Tobacco type: cigarettes Additional smoking assessment comments: ONCE EVERY 5 MONTHS OR SO Alcohol intake: current Drinks per week: 2 Substance use: never Substance use type: does not use Living arrangements: with family Additional living arrangements comments: DAUGHTER Gender identity (if verbalized by the patient): Female Sexual Orientation (if Verbalized by the Patient): Straight or Heterosexual Spiritual care concerns: No Meds Home Medications and Allergies Home Medications Medication Instructions Recorded Confirmed Type Saccharomyces boulardii 250 mg 250 mg PO BID 12/07/22 10/11/23 History capsule (Daily Probiotic (S. boulardii)) biotin 10,000 mcg chewable tablet 10,000 mcg PO DAILY 12/07/22 10/11/23 History (Hair, Skin and Nails (biotin)) cholecalciferol (vitamin D3) 10 10 mcg PO DAILY 12/07/22 10/11/23 History mcg (400 unit) capsule omega-3 417 mg-dha 120 mg-epa-276 1 cap PO DAILY 12/07/22 10/11/23 History mg-fish oil 600 mg-turmeric capsule Allergies Allergy/AdvReac Type Severity Reaction Status Date / Time No Known Allergies Allergy Unknown Verified 10/11/23 14:38 Exam Const: General: cooperative, healthy appearing and comfortable Nutritional Appearance: average body habitus Orientation/consciousness: oriented to person, oriented to place and oriented to time Resp: Effort & Inspection: normal respiratory effort Cardio: Rate: regular rate Rhythm: regular rhythm Heart sounds: S1 normal heart sound present and S2 normal heart sound present GI: Inspection: normal to inspection : External Female Exam: normal external appearance and other (Right labia with mildly enlarged polypoid area) Speculum Exam - Cervix: normal appearance of the cervix Bimanual exam- vagina & uterus: enlarged Bimanual Exam- Adnexa, other: normal adnexae Assessment and Plan Assessment and plan (1) Labia enlarged: Code(s): N90.60 - Unspecified hypertrophy of vulva Status: Acute Plan Resection portion of labia
[2023-10-20] VITALS (9 sets, daily range): BP systolic 95–123; BP diastolic 39–76; PULSE 54–65; RESP 10–20; TEMP 36.4–37.6; O2SAT 99–100
--- NOTE | 2023-10-20 06:35 | WPDHPUPDATE1 ---
History and Physical Update Update Date/Time: 10/20/23 06:35 History and Physical has been reviewed, including an updated exam of the patient. There are NO changes in the patient's condition. Risks, benefits, and alternatives have been discussed and questions answered. Patient agrees to proceed with procedure.
[2023-10-20] MEDS: LACTATED RINGERS 1,000 ML 30 ML IV CONT (08:27)
[2023-10-20] MEDS: ACETAMINOPHEN 500 MG TABLET 1000 MG PO (08:27)
--- NOTE | 2023-10-20 08:56 | WPDANESEPPF ---
Anes - Initial Pre Proc Eval Procedure: Operation Date: 10/20/23 09:30 Proposed Procedures p Bilateral Labiaplasty - Jeffery Langston MD Date/Time: 10/20/23 08:56 Surgeon: Jeffery Langston MD Pre Op Diagnosis: dyspareunia, enlarged bilateral labia Patient Data Age: 33 Gender: F Height: 1.6 m Weight: 105 kg Last Vital Signs Temp 37.6 C 10/20/23 08:37 Pulse 62 10/20/23 08:37 Resp 20 10/20/23 08:37 BP 118/69 10/20/23 08:37 Pulse Ox 100 10/20/23 08:37 O2 Del Method Room Air 10/20/23 08:37 Allergies Allergy/AdvReac Type Severity Reaction Status Date / Time No Known Allergies Allergy Unknown Verified 10/20/23 07:53 Home Medications Medication Instructions Recorded Confirmed Type Saccharomyces boulardii 250 mg 250 mg PO BID 12/07/22 10/20/23 History capsule (Daily Probiotic (S. boulardii)) biotin 10,000 mcg chewable tablet 10,000 mcg PO DAILY 12/07/22 10/20/23 History (Hair, Skin and Nails (biotin)) cholecalciferol (vitamin D3) 10 10 mcg PO DAILY 12/07/22 10/20/23 History mcg (400 unit) capsule omega-3 417 mg-dha 120 mg-epa-276 1 cap PO DAILY 12/07/22 10/20/23 History mg-fish oil 600 mg-turmeric capsule hydrocodone 5 mg-acetaminophen 325 1 tablet PO Q4H PRN pain #20 tabs 10/20/23 Rx mg tablet Patient hx anesthesia problems: none Family hx anesthesia problems: none Results Review: All pre-operative results and documents have been reviewed as part of the pre-operative evaluation. [facility] Past Medical History Medical History (Updated 10/20/23 @ 08:56 by Jeffery Lynch MD) History of DVT (deep vein thrombosis) Morbid obesity Surgical History Surgical History Hx of umbilical hernia repair with mesh Previous section Family History Family History Grandparent Brain tumor Social History Social History (Updated 10/20/23 @ 08:56 by Jeffery Lynch MD) Smoking status: Light tobacco smoker Tobacco type: cigarettes Additional smoking assessment comments: ONCE EVERY 5 MONTHS OR SO Alcohol intake: current Drinks per week: 2 Substance use: never Substance use type: does not use Living arrangements: with family Additional living arrangements comments: DAUGHTER Gender identity (if verbalized by the patient): Female Sexual Orientation (if Verbalized by the Patient): Straight or Heterosexual Spiritual care concerns: No Anes - Eval Final PreProcedure Day of Procedure 10/20/23 08:56 Patient weight: morbidly obese Heart: regular rate and rhythm Lungs: clear to auscultation Airway: Mallampati scale class II Neurological: alert and oriented Last oral intake: >/= 8 hours ASA classification: II Emergent: no Anesthetic plan: proceed Anesthesia type and monitoring: general LMA and standard monitoring Results Review: All pre-operative results and documents have been reviewed as part of the pre-operative evaluation. Informed Consent: The patient's anesthetic plan and its attendant risks and benefits were discussed with the patient/family/POA. Questions were solicited and answers provided to the satisfaction of the patient/family/POA.
[2023-10-20] MEDS: KETOROLAC 30 MG/ML VIAL (*BKC) IV PUSH (09:48)
[2023-10-20] MEDS: LIDO 1%/EPINEPHRINE 1:100,000 20 ML VIAL 5 ML INFILTRATE (09:51)
--- NOTE | 2023-10-20 09:58 | W.PM.PROC2 ---
Procedure Note - Detailed Date of Procedure 10/20/23 Pre-op Diagnosis dyspareunia, enlarged bilateral labia Post-op Diagnosis Same Procedure Performed Right labioplasty Surgeon Jeffery Langston MD Anesthesia General Indications sit 33-year-old female status post previous labioplasty with the small all portion of excess tissue causing her discomfort Findings the labia on the right at the superior portion had nub which was swollen and irregular Description of Procedure patient was prepped draped in normal sterile fashion placed in dorsal lithotomy position. Under excellent LMA anesthesia 1cc xylocaine anesthesia was placed at this most superior portion and incision was made and excise this tissue then it was closed with 4-0 Monocryl. Blood loss estimated 5cc all sponge, needle, instrument counts were correct. There were no immediate complications Estimated Blood Loss 5 Drains No Packing No Pathology None sent Complications No immediate complications Condition Stable Disposition PACU
[2023-10-20] MEDS: oxyCODONE HCL (*CRX) 5 MG TAB IR PO (11:10)
--- NOTE | 2023-10-20 11:52 | SUR.PHASEII ---
1155 PATIENT MEETS ANESTHESIA DISCHARGE CRITERIA. DISCHARGE INSTRUCTIONS GIVEN- ALL QUESTIONS ANSWERRED. PATIENT DRESSED. WAITING ON RIDE HOME.
== END 2023-10-20 12:05 | disposition home or self-care (01) ==
PROVIDERS: Visit Provider Obstetrics & Gynecology
PROC: (CPT 56620; principal; 2023-10-20 09:30)
DX: N90.60 Unspecified hypertrophy of vulva (principal); N94.10 Unspecified dyspareunia; Z86.718 Personal history of other venous thrombosis and embolism; E66.01 Morbid (severe) obesity due to excess calories; Z68.41 Body mass index [BMI] 40.0-44.9, adult; Z72.0 Tobacco use
CPT/HCPCS: 56620; A9270; J1100; J1885; J2250; J2405; J2704; J3010; J7120